=== PATIENT | male | born 1995 | race Asian ===

== ENCOUNTER 2020-04-03 21:41 | Emergency (ER) | payer OTHER ==
[~2020-04-03] VITALS: Ht 167.6 cm; Wt 67.1 kg
[2020-04-03 21:50] VITALS: BP 115/54; Ht 167.6 cm; Wt 67.1 kg
== END 2020-04-04 00:09 | disposition left against medical advice (07) ==
LOC: ED 21:41
DX: Z53.21 Procedure and treatment not carried out due to patient leaving prior to being seen by health care provider (principal)